=== PATIENT | female | born 1965 ===

== ENCOUNTER → 2018-08-28 | Outpatient (CLI) | payer BC, OTHER ==
[~2018-08-28] MED LIST: GADOBUTROL 7.5 MMOL/7.5 ML PFS ONE
== END | disposition home or self-care (01) ==
LOC: CFH 08:39
PROVIDERS: ATTEND Neurological Surgery
DX: E23.7 Disorder of pituitary gland, unspecified (principal); D44.3 Neoplasm of uncertain behavior of pituitary gland
CPT/HCPCS: 70553; A9585